=== PATIENT | female | born 1990 | race Caucasian/White ===

== ENCOUNTER → 2017-04-01 | Outpatient (CLI) | payer MEDICAID | LOC: BMCIMAGING 14:12 | PROVIDERS: ATTEND Internal Medicine | DX: M79.672 Pain in left foot (principal) ==

== ENCOUNTER 2017-09-04 07:43 | Emergency (ER) | payer MEDICAID ==
--- NOTE | 2017-09-04 07:59 | EDPHY ---
H & P Stated Complaint: epigastric pain nausea x 6 months worse last night Time Seen by Provider: 09/04/17 07:59 HPI/ROS: CHIEF COMPLAINT: Epigastric pain HISTORY OF PRESENT ILLNESS: The patient presents the ED with worsening chronic epigastric pain. She reports she has worsening symptoms over the past several weeks and acutely worsening over the past several days. Symptoms are worsened with eating. She has had some associated vomiting. She denies any diarrhea. She does not use NSAIDs. She reports approximately 1 alcoholic beverage in night. She denies any marijuana use. She denies any additional complaints of fever cough or congestion. The patient did have a workup for similar symptoms several years ago which was unrevealing. REVIEW OF SYSTEMS: A comprehensive 10 point review of systems is otherwise negative aside from elements mentioned in the history of present illness. Source: Patient Exam Limitations: No limitations - Personal History Current Tetanus/Diphtheria Vaccine: Unsure Current Tetanus Diphtheria and Acellular Pertussis (TDAP): Unsure - Medical/Surgical History Hx Asthma: No Hx Chronic Respiratory Disease: No Hx Diabetes: No Hx Cardiac Disease: No Hx Renal Disease: No Hx Cirrhosis: No Hx Alcoholism: No Hx HIV/AIDS: No Hx Splenectomy or Spleen Trauma: No Other PMH: denies. no abd surgeries - Social History Smoking Status: Never smoked - Physical Exam Exam: General Appearance: Alert, no distress Eyes: Pupils equal and round no pallor or injection ENT, Mouth: Mucous membranes moist Respiratory: There are no retractions, lungs are clear to auscultation Cardiovascular: Regular rate and rhythm Gastrointestinal: There is tenderness to palpation in the right upper quadrant , normal bowel sounds, no peritoneal signs Neurological: A&O, normal motor function, normal sensory exam, normal cranial nerves Skin: Warm and dry, no rashes Musculoskeletal: Neck is supple nontender Extremities: symmetrical, full range of motion Constitutional: Initial Vital Signs Temperature (C) 37.0 C 09/04/17 07:50 Heart Rate 108 H 09/04/17 07:50 Respiratory Rate 16 09/04/17 07:50 Blood Pressure 111/64 09/04/17 07:50 O2 Sat (%) 97 09/04/17 07:50 O2 Delivery Mode Room Air Allergies/Adverse Reactions: codeine Allergy (Verified 09/04/17 07:49) Home Medications: Medication Instructions Recorded Ortho-Cyclen 10/19/17 Pantoprazole Sodium [Protonix 40mg 40 mg PO DAILY #30 tab 09/04/17 (*)] Medical Decision Making - Diagnostics Imaging Results: Imaging Impressions Abdomen Ultrasound 09/04/17 08:37 Impression: Normal study. If there is further clinical concern regarding the patient's postprandial right upper quadrant pain and the possibility of gallbladder dyskinesia, a nuclear medicine hepatobiliary scan with gallbladder ejection fraction could be considered. Findings were discussed with Collin Doe MD at 9:52 AM, on 09/04/2017. ED Course/Re-evaluation: The patient presents to the ED with intermittent right upper quadrant pain for the past 6 months. The patient's vital signs are stable. She has minimal tenderness noted on exam. A right upper quadrant ultrasound was ordered which demonstrates no evidence of obvious cholelithiasis or cholecystitis. The patient's CBC, serum chemistries and lipase are within normal limits. The patient was given a GI cocktail in the emergency department. At this point time there is no evidence of obvious surgical disease or an acute abdomen. The patient will be advised to begin a proton pump inhibitor. The patient will be referred to our on-call passenger service supervisor for additional workup. She is advised to return to the ED for acutely worsening symptoms or other concerns. Differential Diagnosis: Differential diagnosis considered includes pancreatitis, peptic ulcer disease, cholecystitis, irritable bowel syndrome, hepatitis - Data Points Laboratory Results: Laboratory Results 09/04/17 08:05 09/04/17 08:05 09/04/17 09/04/17 09/04/17 08:05 08:05 08:05 WBC 9.25 10^3/uL 10^3/uL (3.80-9.50) RBC 4.52 10^6/uL 10^6/uL (4.18-5.33) Hgb 14.1 g/dL g/dL (12.6-16.3) Hct 39.9 % % (38.0-47.0) MCV 88.3 fL fL (81.5-99.8) MCH 31.2 pg pg (27.9-34.1) MCHC 35.3 g/dL g/dL (32.4-36.7) RDW 11.8 % % (11.5-15.2) Plt Count 251 10^3/uL 10^3/uL (150-400) MPV 10.4 fL fL (8.7-11.7) Neut % (Auto) 74.0 % % (39.3-74.2) Lymph % (Auto) 19.6 % % (15.0-45.0) [place] % (Auto) 5.0 % % (4.5-13.0) Eos % (Auto) 0.8 % % (0.6-7.6) Baso % (Auto) 0.4 % % (0.3-1.7) Nucleat RBC Rel Count 0.0 % % (0.0-0.2) Absolute Neuts (auto) 6.85 10^3/uL H 10^3/uL (1.70-6.50) Absolute Lymphs (auto) 1.81 10^3/uL 10^3/uL (1.00-3.00) Absolute Monos (auto) 0.46 10^3/uL 10^3/uL (0.30-0.80) Absolute Eos (auto) 0.07 10^3/uL 10^3/uL (0.03-0.40) Absolute Basos (auto) 0.04 10^3/uL 10^3/uL (0.02-0.10) Absolute Nucleated RBC 0.00 10^3/uL 10^3/uL (0-0.01) Immature Gran % 0.2 % % (0.0-1.1) Immature Gran # 0.02 10^3/uL 10^3/uL (0.00-0.10) Sodium 138 mEq/L mEq/L (134-144) Potassium 4.2 mEq/L mEq/L (3.5-5.2) Chloride 104 mEq/L mEq/L (97-110) Carbon Dioxide 26 mEq/l mEq/l (22-31) Anion Gap 8 mEq/L mEq/L (8-16) BUN 15 mg/dL mg/dL (7-23) Creatinine 0.6 mg/dL mg/dL (0.6-1.0) Estimated GFR > 60 Glucose 79 mg/dL mg/dL (70-100) Calcium 9.5 mg/dL mg/dL (8.5-10.4) Total Bilirubin 0.9 mg/dL mg/dL (0.1-1.4) Conjugated Bilirubin 0.2 mg/dL mg/dL (0.0-0.5) Unconjugated Bilirubin 0.7 mg/dL mg/dL (0.0-1.1) AST 19 IU/L IU/L (14-46) ALT 28 IU/L IU/L (9-52) Alkaline Phosphatase 63 IU/L IU/L (38-126) Total Protein 6.8 g/dL g/dL (6.3-8.2) Albumin 4.0 g/dL g/dL (3.5-5.0) Lipase 60 IU/L IU/L (23-300) Beta HCG, Qual NEGATIVE Medications Given: Discontinued Medications Al Hydroxide/Mg Hydroxide (Maalox Susp) 30 ml PO ONCE ONE Stop: 09/04/17 08:33 Last Admin: 09/04/17 08:46 Dose: 30 ml Hyoscyamine Sulfate (Levsin, Hyomax-Sl) 0.25 mg PO ONCE ONE Stop: 09/04/17 08:33 Last Admin: 09/04/17 08:45 Dose: 0.25 mg Lidocaine (Lidocaine 2% Viscous) 15 ml PO ONCE ONE Stop: 09/04/17 08:33 Last Admin: 09/04/17 08:46 Dose: 15 ml Departure - Departure Disposition: Home, Routine, Self-Care Clinical Impression: Epigastric abdominal pain Condition: Good Instructions: Abdominal Pain (ED) Additional Instructions: 1. Your ultrasound and laboratory studies are within normal limits. 2. Please begin Protonix as prescribed. 3. Please limit caffeine and alcohol intake. Please avoid medications such as ibuprofen, Motrin and Aleve. 4. Please follow up with a passenger service supervisor you have been referred to for further evaluation of your symptoms. 5. Please return to the emergency department for worsening symptoms Referrals: Alyssa Ayers MD [Medical Doctor] - As per Instructions
[2017-09-04] MEDS ORDERED: LIDOCAINE 2% VISCOUS 15 ML UDCUP PO ONE (08:32)
[2017-09-04] MEDS ORDERED: MAG HYDROX/AL HYDROX/SIMETH 30 ML UDCUP PO ONE (08:32)
[2017-09-04] MEDS ORDERED: HYOSCYAMINE SULFATE 0.125 MG TAB PO ONE (08:32)
[2017-09-04 08:44] LABS: % IMMATURE GRANULYOCYTES 0.2 % (0.0-1.1); ABSOLUTE IMMATURE GRANULOCYTES 0.02 10^3/uL (0.00-0.10); ADD DIFF? NO; ADD MORPH? NO; ADD SCAN? NO; ATYPICAL LYMPHOCYTE FLAG 10 (0-99); FRAGMENT RBC FLAG 0 (0-99); HEMATOCRIT 39.9 % (38.0-47.0); HEMOGLOBIN 14.1 g/dL (12.6-16.3); LEFT SHIFT FLG 0 (0-99); LIPEMIA HEMOLYSIS FLAG 90 (0-99); MEAN CELL HEMOGLOBIN 31.2 pg (27.9-34.1); MEAN CELL HEMOGLOBIN CONCENTR. 35.3 g/dL (32.4-36.7); MEAN CELL VOLUME 88.3 fL (81.5-99.8); MEAN PLATELET VOLUME 10.4 fL (8.7-11.7); PLATELET CLUMPS FLAG 10 (0-99); PLATELET COUNT 251 10^3/uL (150-400); RED BLOOD CELL COUNT 4.52 10^6/uL (4.18-5.33); RED CELL DISTRIBUTION WIDTH 11.8 % (11.5-15.2)
[2017-09-04 08:52] LABS: ALANINE AMINOTRANSFERASE 28 IU/L (9-52); ALKALINE PHOSPHATASE 63 IU/L (38-126); ANION GAP 8 mEq/L (8-16); ASPARTATE AMINOTRANSFERASE 19 IU/L (14-46); BILIRUBIN,TOTAL 0.9 mg/dL (0.1-1.4); BILIRUBIN-CONJUGATED 0.2 mg/dL (0.0-0.5); BILIRUBIN-UNCONJUGATED 0.7 mg/dL (0.0-1.1); CALCIUM 9.5 mg/dL (8.5-10.4); CARBON DIOXIDE 26 mEq/l (22-31); CHLORIDE 104 mEq/L (97-110); CREATININE 0.6 mg/dL (0.6-1.0); GLOMERULAR FILTRATION RATE > 60; GLUCOSE 79 mg/dL (70-100); POTASSIUM 4.2 mEq/L (3.5-5.2); SODIUM 138 mEq/L (134-144); TOTAL PROTEIN 6.8 g/dL (6.3-8.2)
[2017-09-04 10:51] VITALS: BP 109/62; PULSE 79; RESP 18; TEMP 98.4; O2SAT 98
== END 2017-09-04 10:50 | disposition home or self-care (01) ==
DX: R10.13 Epigastric pain (principal)

== ENCOUNTER → 2018-04-02 | Outpatient (CLI) | payer MEDICAID | LOC: FIMAGING 07:32 | PROVIDERS: ATTEND Advanced Practice Midwife | DX: Z34.02 Encounter for supervision of normal first pregnancy, second trimester (principal); Z3A.21 21 weeks gestation of pregnancy; Z82.79 Family history of other congenital malformations, deformations and chromosomal abnormalities ==